=== PATIENT | male | born 1995 | race Caucasian/White ===

== ENCOUNTER 2021-04-28 12:57 | Emergency (ER) | payer OTHER, SELFPAY ==
[2021-04-28 13:08] VITALS: BP 121/79; PULSE 73; RESP 16; TEMP 35.8; O2SAT 99
--- NOTE | 2021-04-28 13:48 | ED.GENADULT ---
HPI - General Adult General Chief complaint: Nausea/Vomiting/Diarrhea Stated complaint: headache,abdominal pain,nausea Time Seen by Provider: 04/28/21 13:49 Source: patient and RN notes reviewed Mode of arrival: ambulatory Limitations: no limitations History of Present Illness HPI narrative: Aaron is a 25 year old male patient who ambulated into [facility]. He c/o nausea, vomiting, states he had a fever at 8:00 this morning. Complains of fatigue, headache and lethargy. Patient states he called off work this morning and needs a work note. Patient is an insulin-dependent diabetic and states that it is well controlled. MD complaint: nausea, vomiting Related Data Home Medications Medication Instructions Recorded Confirmed glucagon (human recombinant) 1 mg 1 mg IM ONCE each 10/27/19 08/16/20 solution for injection pen needle, diabetic 32 gauge x #10 each 10/27/19 08/16/20 ondansetron 4 mg disintegrating 4 mg PO Q8H tablet 12/15/19 08/16/20 tablet Allergies Allergy/AdvReac Type Severity Reaction Status Date / Time No Known Allergies Allergy Verified 04/28/21 13:58 Review of Systems Review of Systems: CONSTITUTIONAL: Denies body aches, fever, chills, or sweats. EYES: Denies visual changes, redness, or discharge. ENT: Denies rhinorrhea, congestion, sore throat, or otalgia. CARDIOVASCULAR: Denies chest pain, palpitations, or edema. RESPIRATORY: Denies cough or dyspnea. GASTROINTESTINAL: Denies abdominal pain+ nausea+ vomiting, denies diarrhea. GENITOURINARY: Denies dysuria or hematuria. SKIN: Denies rash, itching, or wounds. MUSCULOSKELETAL: Denies back pain, joint pain, or myalgia. NEUROLOGIC: Denies headache, numbness, tingling, or weakness. PSYCH: Denies depression or anxiety. All systems reviewed & are unremarkable except as noted in HPI and below PMFSH Past Medical History Medical History Bipolar depression Social History Social History Smoking status: Never smoker Alcohol intake: current Comments At time of signature, I have reviewed and agree with nursing past medical, surgical, social and family history unless otherwise noted. Please see nursing chart for further information. There is no relevant family history pertinent to the presenting complaint Exam Narrative: GENERAL: Well-appearing, well-nourished, and in no acute distress. HEAD: Normocephalic, atraumatic. EYES: EOMI. No redness or drainage. Conjunctivae normal. ENT: Mucous membranes pink and moist. Nares clear. No rhinorrhea. TMs normal bilaterally. Throat normal. Uvula midline. NECK: Normal AROM. Supple. Left anterior cervical lymphadenopathy. CHEST: No respiratory distress. Clear to auscultation. ABDOMEN: Soft, nontender, nondistended, normal active bowel sounds. MUSCULOSKELETAL: No bony tenderness. EXTREMITIES: Normal range of motion. No edema. SKIN: Warm, dry, no rash. Capillary refill normal. Normal skin turgor. NEURO: No focal deficits. Alert and oriented x3. Gait steady. PSYCH: Normal affect. No signs of depression or anxiety. Course Vital Signs Vital signs: Vital Signs Temperature 35.8 C L 04/28/21 13:08 Pulse Rate 73 04/28/21 13:08 Respiratory Rate 16 04/28/21 13:08 Blood Pressure 121/79 04/28/21 13:08 Pulse Oximetry 99 04/28/21 13:08 Temperature 35.8 C L 04/28/21 13:08 Pulse Rate 73 04/28/21 13:08 Respiratory Rate 16 04/28/21 13:08 Blood Pressure 121/79 04/28/21 13:08 Pulse Oximetry 99 04/28/21 13:08 Reviewed Medical Decision Making MDM Narrative Medical decision making narrative: Patient's influenza is negative. Patient will be diagnosed with gastroenteritis. Patient states he has his own Zofran at home. Patient will be given a work note for today. Patient to increase his fluid intake as tolerated. Follow-up bland diet for the next 24 to 4
== END 2021-04-28 14:14 | disposition home or self-care (01) ==
PROVIDERS: Emergency Provider Nurse Practitioner Family
DX: K52.9 Noninfective gastroenteritis and colitis, unspecified (principal); E11.9 Type 2 diabetes mellitus without complications; Z79.4 Long term (current) use of insulin
CPT/HCPCS: 87804; 99213; G0463

== ENCOUNTER 2021-07-08 18:51 | Emergency (ER) | payer OTHER, SELFPAY ==
[2021-07-08 18:59] VITALS: BP 122/81; PULSE 89; RESP 16; TEMP 37; O2SAT 100
--- NOTE | 2021-07-08 19:05 | ED.GENADULT ---
HPI - General Adult General Chief complaint: Abdominal Pain Stated complaint: Fatigue,Abdominal Pain Time Seen by Provider: 07/08/21 19:06 Source: patient, RN notes reviewed and old records reviewed Mode of arrival: ambulatory Limitations: no limitations History of Present Illness HPI narrative: 25 year old male who presents to [facility] care with complaints of some abdominal cramping mid abdomen area for the past 2 days intermittently, some nausea with no vomiting or any episodes of diarrhea. Patient is Type I diabetic and states that his sugars have been running higher than normal, he has been in a lot of stress with his girlfriend in the hospital due to seizures. Patient does have insulin pump and also continuous glucose monitor in place with glucose level 214, reports that he ate peanut butter and crackers about 1/2 hour prior to arrival did put in carb amount and states that his pump did bolus him 3 units. MD complaint: abdominal cramping with nausea Onset (ago): day(s) (2) Location: abdomen (mid abdomen) Radiation: non-radiation Severity: mild Severity scale (1-10): 2 Quality: other (cramp) Pain Consistency: intermittent Treatments prior to arrival: other (took Ibuprofen) Related Data Home Medications Medication Instructions Recorded Confirmed pen needle, diabetic 32 gauge x #10 each 10/27/19 08/16/20 Allergies Allergy/AdvReac Type Severity Reaction Status Date / Time No Known Allergies Allergy Verified 07/08/21 18:52 Review of Systems Review of Systems: CONSTITUTIONAL: Denies fever, chills, or sweats. EYES: Denies visual changes, redness, or discharge. ENT: Denies rhinorrhea, congestion, sore throat, or otalgia. CARDIOVASCULAR: Denies chest pain, palpitations, or edema. RESPIRATORY: Denies cough or dyspnea. GASTROINTESTINAL: Reports abdominal cramping with nausea, no vomiting, or diarrhea. GENITOURINARY: Denies dysuria or hematuria. SKIN: Denies rash or itching. MUSCULOSKELETAL: Denies back pain, joint pain, or myalgia. NEUROLOGIC: Denies headache, numbness, or weakness. PSYCHIATRIC: Positive for history of anxiety or depression. All systems reviewed & are unremarkable except as noted in HPI and below PMFSH Past Medical History Medical History (Updated 07/08/21 @ 19:50 by Tali Garcia NP) Asthma Bipolar depression Single functional kidney Type 1 diabetes Surgical History Surgical History (Updated 07/08/21 @ 19:50 by Tali Garcia NP) History of bladder surgery urethra reconstruction History of testicular surgery undescended testicle History of tonsillectomy Family History Family History (Updated 07/08/21 @ 19:49 by Tali Garcia NP) Grandparent Depression Other Diabetes mellitus Heart disease Hypertension Social History Social History (Updated 07/08/21 @ 19:38 by Tali Garcia NP) Smoking status: Never smoker Alcohol intake: former Substance use: never Living arrangements: with family Gender identity (if verbalized by the patient): Male Comments At time of signature, agree with nursing past medical, surgical, social and family history. There is no relevant family history pertinent to the presenting complaint Exam Narrative: GENERAL: Well-appearing, well-nourished,unkept appearance, and in no acute distress. HEAD: Normocephalic, atraumatic. EYES: PERRLA and EOMI. ENT: Nares clear, no rhinorrhea or epistaxis. Mucous membranes moist.TM's normal with good light reflex, throat pink with no lesion or exudates, tonsils absent NECK: Supple. no lymphadenopathy CHEST: Clear to auscultation. No respiratory distress.SAO2 100% on room air HEART: Regular rate and rhythm. No murmur heard. Normal peripheral pulses. ABDOMEN: Soft, nontender to palpation, no McBurney tenderness, nondistended, normal active bowel sounds.No CVA tenderness, No stated complaints of any burning or pain with urination. EXTREMITIES: Normal range of motion. No edema. SKIN: Warm,
--- NOTE | 2021-07-08 19:11 | ED.GENADULT ---
HPI - General Adult General Chief complaint: Upper Respiratory Infection Stated complaint: Fatigue,Abdominal Pain Time Seen by Provider: 07/08/21 19:06 Source: patient, RN notes reviewed and old records reviewed Mode of arrival: ambulatory Limitations: no limitations History of Present Illness HPI narrative: 25 year old patient who present to [facility] care with complaints of some abdominal cramping and some nausea for the past 2 days which Onset (ago): day(s) (2) Location: abdomen (cramping) Quality: aching (mid abdomen with some nausea) Pain Consistency: intermittent Related Data Home Medications Medication Instructions Recorded Confirmed pen needle, diabetic 32 gauge x #10 each 10/27/19 08/16/20 Allergies Allergy/AdvReac Type Severity Reaction Status Date / Time No Known Allergies Allergy Verified 07/08/21 18:52 Review of Systems Review of Systems: CONSTITUTIONAL: Denies fever, chills, or sweats. EYES: Denies visual changes, redness, or discharge. ENT: Denies rhinorrhea, congestion, sore throat, or otalgia. CARDIOVASCULAR: Denies chest pain, palpitations, or edema. RESPIRATORY: Denies cough or dyspnea. GASTROINTESTINAL: Denies abdominal pain, nausea, vomiting, or diarrhea. GENITOURINARY: Denies dysuria or hematuria. SKIN: Denies rash or itching. MUSCULOSKELETAL: Denies back pain, joint pain, or myalgia. NEUROLOGIC: Denies headache, numbness, or weakness. PSYCHIATRIC: Denies anxiety or depression. All systems reviewed & are unremarkable except as noted in HPI and below PMFSH Past Medical History Medical History (Updated 07/08/21 @ 19:24 by Tali Garcia NP) Bipolar depression Type 1 diabetes Social History Social History Smoking status: Never smoker Alcohol intake: current Comments At time of signature, agree with nursing past medical, surgical, social and family history. There is no relevant family history pertinent to the presenting complaint Exam Narrative: GENERAL: Well-appearing, well-nourished, and in no acute distress. HEAD: Normocephalic, atraumatic. EYES: PERRLA and EOMI. ENT: Nares clear, no rhinorrhea or epistaxis. Mucous membranes moist. NECK: Supple. CHEST: Clear to auscultation. No respiratory distress. HEART: Regular rate and rhythm. No murmur heard. Normal peripheral pulses. ABDOMEN: Soft, nontender, nondistended, normal active bowel sounds. EXTREMITIES: Normal range of motion. No edema. SKIN: Warm, dry, no rash. NEURO: No focal deficits. Alert and oriented x3. Course Vital Signs Vital signs: Vital Signs Temperature 37.0 C 07/08/21 18:59 Pulse Rate 89 07/08/21 18:59 Respiratory Rate 16 07/08/21 18:59 Blood Pressure 122/81 07/08/21 18:59 Pulse Oximetry 100 07/08/21 18:59 Temperature 37.0 C 07/08/21 18:59 Pulse Rate 89 07/08/21 18:59 Respiratory Rate 16 07/08/21 18:59 Blood Pressure 122/81 07/08/21 18:59 Pulse Oximetry 100 07/08/21 18:59 Medical Decision Making Vital Signs Vital Signs: Vital Signs Temperature 37.0 C 07/08/21 18:59 Pulse Rate 89 07/08/21 18:59 Respiratory Rate 16 07/08/21 18:59 Blood Pressure 122/81 07/08/21 18:59 Pulse Oximetry 100 07/08/21 18:59 Temperature 37.0 C 07/08/21 18:59 Pulse Rate 89 07/08/21 18:59 Respiratory Rate 16 07/08/21 18:59 Blood Pressure 122/81 07/08/21 18:59 Pulse Oximetry 100 07/08/21 18:59 Discharge Plan Discharge Clinical Impression: Abdominal cramping, Nausea alone Patient Disposition: Home, Self-Care Condition: Stable Instructions: Antibiotic Form Additional Instructions: Monitor glucose levels carefully continuous DEXCOM monitor A bland diet can consist of--BRAT diet which is bananas, rice, applesauce, and toast, avoid spicy foods Avoid fried, greasy, fatty, fried foods Avoid caffeine, nicotine, and alcohol Return to your regular diet in the next 3-4 days wit
== END 2021-07-08 19:33 | disposition home or self-care (01) ==
PROVIDERS: Emergency Provider Registered Nurse; PCP Internal Medicine
DX: R10.9 Unspecified abdominal pain (principal); R11.0 Nausea; J45.909 Unspecified asthma, uncomplicated; E10.9 Type 1 diabetes mellitus without complications; F31.9 Bipolar disorder, unspecified
CPT/HCPCS: 82948; 99213; G0463